=== PATIENT | female | born 1995 | race Caucasian/White ===

== ENCOUNTER → 2024-05-25 | Outpatient (CLI) | payer BC ==
[~2024-05-25] MED LIST: PROHANCE 279.3MG/ML 15ML VIAL ONE; PROHANCE 279.3MG/ML 5ML VIAL ONE
== END ==
LOC: M PLAIMG 15:09
PROVIDERS: ATTEND Otolaryngology
DX: J35.8 Other chronic diseases of tonsils and adenoids (principal)
CPT/HCPCS: 70543; A9576

== ENCOUNTER 2024-06-22 07:41 | Day surgery (SDC) | payer BC ==
[~2024-06-22] VITALS: Ht 162.6 cm; Wt 121.4 kg
[2024-06-22] MEDS ORDERED: LR 1,000 ML IV SCH (08:10)
[2024-06-22] MEDS ORDERED: propofoL 200 MG/20 ML VIAL As Ordered ONE (09:04)
[2024-06-22] MEDS ORDERED: LIDOCAINE 2% 100MG/5ML SDV (FOR ANES.) As Ordered ONE (09:04)
[2024-06-22] MEDS ORDERED: ONDANSETRON 4MG 2ML VIAL As Ordered ONE (09:04)
[2024-06-22] MEDS ORDERED: fentaNYL 100 MCG/2 ML INJECTION As Ordered ONE (09:04)
[2024-06-22] MEDS ORDERED: ROCURONIUM BROMIDE 50MG/5ML VIAL As Ordered ONE (09:04)
[2024-06-22] MEDS ORDERED: MIDAZOLAM INJ 2MG/2ML VIAL As Ordered ONE (09:05)
[2024-06-22] MEDS ORDERED: dexmedeTOMIDine (4MCG/ML)200MCG/50ML BTL (PRECEDEX) As Ordered ONE (09:45)
[2024-06-22] MEDS ORDERED: SEVOFLURANE INHAL SOLN 250 ML BTL As Ordered ONE (09:50)
[2024-06-22] MEDS ORDERED: SUGAMMADEX SODIUM 500 MG/5 ML VIAL (BRIDION) As Ordered ONE (09:50)
[2024-06-22] MEDS ORDERED: ACETAMINOPHEN 1000MG/100ML IV BAG As Ordered ONE (09:53)
[2024-06-22] MEDS: METHYLENE BLUE 0.5% (5MG/ML) 10 ML AMP (PROVAYBLUE) As Ordered ONE (10:45)
[2024-06-22] MEDS: OXYMETAZOLINE 0.05% NASAL SPRAY (AFRIN) As Ordered ONE (10:45)
[2024-06-22] MEDS ORDERED: METOCLOPRAMIDE INJ 10MG/2ML VIAL As Ordered ONE (10:49)
[2024-06-22] MEDS: LIDOCAINE W/EPINEPHRINE 1% 20ML VIAL As Ordered ONE (11:00)
[2024-06-22] MEDS ORDERED: fentaNYL 100 MCG/2 ML INJECTION IV PRN (11:20)
[2024-06-22] MEDS ORDERED: ONDANSETRON 4MG 2ML VIAL IV PRN (11:20)
[2024-06-22] MEDS ORDERED: oxyCODONE 5MG TAB PO PRN (11:20)
[2024-06-22] MEDS: HYDROMORPHONE HCL 0.5 MG/ 0.5 ML SYRINGE IV PRN (11:39)
[2024-06-22 12:25] VITALS: BP 129/57
[2024-06-22 12:45] VITALS: TEMP 97; O2SAT 100
== END 2024-06-22 13:01 | disposition home or self-care (01) ==
LOC: M SDC 07:41
PROVIDERS: ATTEND Otolaryngology
DX: J35.8 Other chronic diseases of tonsils and adenoids (principal); K14.8 Other diseases of tongue; E66.9 Obesity, unspecified; E28.2 Polycystic ovarian syndrome; Z90.89 Acquired absence of other organs; Z87.891 Personal history of nicotine dependence; Z80.0 Family history of malignant neoplasm of digestive organs; Z80.51 Family history of malignant neoplasm of kidney; Z80.8 Family history of malignant neoplasm of other organs or systems; Z80.3 Family history of malignant neoplasm of breast
CPT/HCPCS: 31536; 81025; 88305; J0131; J1100; J1171; J2250; J2405; J2765; J3010; Q9968

== ENCOUNTER → 2024-07-17 | Outpatient (CLI) | payer BC | LOC: M PLAIMG 15:06 | PROVIDERS: ATTEND Physician Assistant Medical | DX: J35.8 Other chronic diseases of tonsils and adenoids (principal) | CPT/HCPCS: 70543; A9576 ==

== ENCOUNTER 2024-12-15 13:26 | Emergency (ER) | payer BC ==
[~2024-12-15] VITALS: Ht 162.6 cm; Wt 119.3 kg
[2024-12-15 13:31] VITALS: TEMP 98.6
[2024-12-15] MEDS ORDERED: PHEN30CA21 (13:37)
[2024-12-15] MEDS ORDERED: IBUP-1114 PO (13:37)
[2024-12-15 14:56] LABS: KETONE, URINE AUTO RFX TRACE mg/dL (NEGATIVE); LEUKOCYTE ESTERASE UR AUTO RFX NEGATIVE (NEGATIVE); MUCUS, URINE RFX SMALL (NEGATIVE); NITRITE, URINE AUTO RFX NEGATIVE (NEGATIVE); RBC, URINE AUTO RFX 0 /HPF (0-3); SQUAM EPITHELIAL CELL UR AURFX 1 /HPF (0-6); WBC, URINE AUTO RFX 0 /HPF (0-3)
[2024-12-15 16:45] LABS: BASO # 0.0 10^3/uL (0.0-0.2); BASO % 0.5 % (0.0-1.0); EOS # 0.1 10^3/uL (0.0-0.5); EOS % 1.0 % (0.0-3.0); LYMPH # 3.3 10^3/uL (1.5-5.0); LYMPH % 39.3 % (24.0-44.0); MONO # 0.6 10^3/uL (0.0-0.8); MONO % 6.7 % (2.0-8.0); NEUTROPHILS # 4.4 10^3/uL (1.5-8.5); NEUTROPHILS % 52.3 % (36.0-66.0); PLATELET COUNT, AUTOMATED 245 10^3/uL (150-450)
[2024-12-15 17:06] LABS: CALCIUM LEVEL 8.8 MG/DL (8.5-10.1); CARBON DIOXIDE LEVEL 27 MMOL/L (20-31); CHLORIDE LEVEL 105 MMOL/L (98-107); CK-MB VALUE MASS 1.7 NG/ML (<3.6); CREATININE FOR GFR 0.75 MG/DL (0.55-1.30); GLOMERULAR FILTRATION RATE > 90.0 (>60); HCG, SERUM QUALITATIVE NEGATIVE (NEGATIVE); POTASSIUM SERUM 4.1 MMOL/L (3.5-5.1); SODIUM LEVEL 140 MMOL/L (136-145)
[2024-12-15 17:08] LABS: FREE T4 1.11 NG/DL (0.89-1.76)
[2024-12-15 17:09] LABS: CPK CREATINE PHOSPHOKINASE 81 U/L (34-145); MB/CK RELATIVE INDEX 2.09 (< OR =4)
[2024-12-15 17:54] LABS: Trichomonas vaginalis (AMP) NOT DETECTED (NEGATIVE)
[2024-12-15 18:19] LABS: GC DNA AMPLIFICATION NEGATIVE (NEGATIVE)
[2024-12-15 18:45] VITALS: O2SAT 98
[2024-12-15 19:15] LABS: CK-MB VALUE MASS 1.4 NG/ML (<3.6); CPK CREATINE PHOSPHOKINASE 85 U/L (34-145); MB/CK RELATIVE INDEX 1.64 (< OR =4)
[2024-12-15] MEDS: NS (Normal Saline) 0.9% 1,000 ML IV ONE (19:39)
[2024-12-15 21:08] VITALS: BP 128/74
== END 2024-12-15 21:39 | disposition home or self-care (01) ==
LOC: M ED 13:26
DX: E86.0 Dehydration (principal); R00.1 Bradycardia, unspecified; E28.2 Polycystic ovarian syndrome; Z90.89 Acquired absence of other organs; F12.10 Cannabis abuse, uncomplicated; Z79.1 Long term (current) use of non-steroidal anti-inflammatories (NSAID); Z79.899 Other long term (current) drug therapy